=== PATIENT | female | born 1990 | race Asian ===

== ENCOUNTER → 2018-05-01 | Outpatient (REF) | payer OTHER | LOC: M SFHCLERA 18:05 | PROVIDERS: ATTEND Physician Assistant | DX: J02.9 Acute pharyngitis, unspecified (principal) ==

== ENCOUNTER 2018-12-20 17:04 | Emergency (ER) | payer OTHER ==
[~2018-12-20] VITALS: Ht 165.1 cm; Wt 48.6 kg
[2018-12-20] MEDS ORDERED: MULTTAB20 PO (19:56)
[2018-12-20 20:06] VITALS: BP 112/73
[2018-12-20] MEDS ORDERED: diphenhydrAMINE 25 MG CAP PO ONE (20:30)
== END 2018-12-20 20:54 | disposition home or self-care (01) ==
LOC: M ED 17:04
DX: O99.711 Diseases of the skin and subcutaneous tissue complicating pregnancy, first trimester (principal); Z3A.01 Less than 8 weeks gestation of pregnancy; Z79.899 Other long term (current) drug therapy; J30.89 Other allergic rhinitis

== ENCOUNTER → 2019-01-04 | Outpatient (CLI) | payer OTHER ==
[~2019-01-04] MED LIST: MULTTAB20 PO
--- NOTE | 2019-01-04 12:16 | REP ---
FIRST TRIMESTER ULTRASOUND: Real-time sonographic evaluation of the gravid uterus performed. There is a gestational sac in the endometrial canal containing a pole. The crown-rump length measurement is 15 mm. This corresponds to an estimated gestational age of 7 weeks 6 days. However no heart motion is detected, consistent with intrauterine demise. Uterine length is 8.9 cm. Right ovary measures 2.8 x 1.8 x 2.3 cm and left ovary 3.6 x 2.2 x 2.7 cm. There is a complex structure in the left ovary probably representing a complex corpus luteum 2 cm in diameter. There is no torsion or free fluid. IMPRESSION: Intrauterine demise at 7 weeks 6 days gestational age. Schurz-rump length of 15 mm demonstrates no heart motion. Electronically Signed by Acosta Hsu MD 01/05/2019 09:39 A
== END ==
LOC: M RAD 10:11
PROVIDERS: ATTEND Advanced Practice Midwife
DX: O20.0 Threatened abortion (principal)

== ENCOUNTER 2019-01-05 13:33 | Day surgery (SDC) | payer OTHER ==
[~2019-01-05] VITALS: Ht 165.1 cm; Wt 49.8 kg
[~2019-01-05 13:33] MED LIST changes: +ACETAMINOPHEN 325 MG TAB PO ONE; +DOXYCYCLINE HYCLATE 200 MG in D5W 250 ML IV ONE
[2019-01-05 14:16] LABS: HEMOGLOBIN 13.6 g/dl (12.0-15.5); MEAN CORPUSCULAR HEMOGLOBIN 31.9 pg (27.0-33.0); MEAN CORPUSCULAR VOLUME 93.9 fl (80.0-96.0); PLATELET COUNT, AUTOMATED 248 10^3/uL (150-450); RED BLOOD COUNT 4.26 10^6/uL (4.00-5.40); WHITE BLOOD COUNT 6.8 10^3/uL (4.0-10.0)
[2019-01-05] MEDS ORDERED: DOXYCYCLINE HYCLATE 100 MG in D5W MINI-BAG PLUS 100 ML IV SCH (17:30)
[2019-01-05] MEDS ORDERED: LIDOCAINE 2% INJ 100 MG/5 ML SDV (FOR ANES.) As Ordered ONE (17:41)
[2019-01-05] MEDS ORDERED: PROPOFOL 200 MG/20 ML VIAL As Ordered ONE (17:41)
[2019-01-05] MEDS ORDERED: ONDANSETRON 4MG/2ML VIAL (J2405) As Ordered ONE (17:42)
[2019-01-05] MEDS ORDERED: dexameTHASONE 4 MG/ML 1ML VIAL (J1100) As Ordered ONE (17:42)
[2019-01-05] MEDS ORDERED: fentaNYL 100 MCG/2 ML INJECTION (J3010) As Ordered ONE (17:42)
[2019-01-05] MEDS ORDERED: MIDAZOLAM INJ 2 MG/2 ML VIAL (J2250) As Ordered ONE (17:42)
[2019-01-05] MEDS ORDERED: BUPIVACAINE HCL 0.25% 30 ML VIAL As Ordered ONE (17:52)
[2019-01-05 20:00] VITALS: BP 100/66
--- NOTE | 2019-01-07 15:26 | RO ---
DATE OF PROCEDURE: 01/05/2019 PREPROCEDURE DIAGNOSIS: Missed , 8 weeks. POSTPROCEDURE DIAGNOSIS: Missed , 8 weeks. SURGEON: William Severino DO CARPET SEWING MACHINE OPERATOR: None. INDICATION FOR PROCEDURE: The patient is a 28-year-old 1 at 9 weeks gestation by last menstrual period who was diagnosed with a missed measuring 8 weeks in size on US. The patient was counseled on her various options and desired to proceed with dilation and curettage. The patient elected for same day surgery. PROPHYLACTIC ANTIBIOTICS: Doxycycline 200 mg intravenous. INTRAVENOUS FLUIDS: 700 mL of Crystalloid. ESTIMATED BLOOD LOSS: 50 mL. URINE OUTPUT: N/A SPECIMENS SENT TO LABORATORY: Products of conception. ANESTHESIA: IV sedation with paracervical block. PROCEDURES PERFORMED: 1. Paracervical block. 2. Suction and sharp dilation and curettage. FINDINGS: 10 cm size anteverted, slightly anteflexed uterus, cervix was multiparous looking, i.e. ectropium to the external cervical os. Adnexa within normal limits. No evidence of any masses on palpation. Moderate products of conception were suctioned. DESCRIPTION OF PROCEDURE: The patient was taken to the operating room where IV sedation was performed. The patient was placed initially in the low lithotomy position in the yellow fin stirrups. The patient was then elevated to the high lithotomy position using the stirrups and examination under anesthesia as noted in the findings section was performed. This was followed by standard covering and draping. A final surgical time out was done before initiation of the procedure. A weighted speculum was placed in the posterior aspect of the vagina. This was followed by a [place] type retractor anteriorly. An additional stick of Betadine was placed at this time to paint the cervix. The anterior lip of the cervix was grasped at this time with a single toothed tenaculum. An intra-paracervical block was placed using 9 mL of 0.25% bupivacaine. This was placed at the 12 o'clock position right underneath the tenaculum site. As well as at the vaginocervical junctions at roughly the 5 and 7 o'clock positions. The cervix was sequentially dilated with Hanks dilators to 20-Ukrainian. Using an 8 suction curette, an uncomplicated suction curettage was performed with three passes. This was followed by sharp curetting of the cavity followed by one pass of the suction currette with no significant evidence of any retained products of conception. The tenaculum was removed. A final inspection was performed at this time. Excellent hemostasis was noted. All instruments were removed from the vagina. Sponge, needle and instrument counts were correct times two and the patient tolerated the procedure well and was taken to the recovery room in stable condition. EDDI
== END 2019-01-05 20:10 | disposition home or self-care (01) ==
LOC: M SDC 13:33
PROVIDERS: ATTEND Obstetrics & Gynecology
DX: O02.1 Missed abortion (principal)
CPT/HCPCS: 36415; 59820; 84702; 85027; 86850; 86900; 86901; 88305; J1100; J2250; J2405; J3010